=== PATIENT | male | born 1975 ===

== ENCOUNTER → 2020-09-01 12:02 | Outpatient (BNVA) | payer MEDICARE, MEDICAID, SELFPAY | PROVIDERS: PCP Nurse Practitioner Family; Visit Provider Internal Medicine Gastroenterology | DX: Z13.89 Encounter for screening for other disorder (principal) | CPT/HCPCS: Q3014 ==

== ENCOUNTER → 2020-09-05 08:54 | Outpatient (BNV) | payer MEDICARE, MEDICAID, SELFPAY | PROVIDERS: PCP Family Medicine; Visit Provider Internal Medicine | DX: D69.6 Thrombocytopenia, unspecified (principal) | CPT/HCPCS: 99212; 99213 ==

== ENCOUNTER → 2020-09-18 09:06 | Outpatient (BNVA) | payer MEDICARE, MEDICAID, SELFPAY | PROVIDERS: PCP Nurse Practitioner Family; Referring Provider Nurse Practitioner Family; Visit Provider Internal Medicine Endocrinology, Diabetes & Metabolism | DX: E16.2 Hypoglycemia, unspecified (principal) | CPT/HCPCS: 99202 ==

== ENCOUNTER → 2021-07-02 10:11 | Outpatient (BNVA) | payer MEDICARE, MEDICAID, SELFPAY | PROVIDERS: PCP Nurse Practitioner Family; Visit Provider Internal Medicine Gastroenterology | DX: K21.00 Gastro-esophageal reflux disease with esophagitis, without bleeding (principal); K22.70 Barrett's esophagus without dysplasia; D50.0 Iron deficiency anemia secondary to blood loss (chronic) | CPT/HCPCS: 99212 ==

== ENCOUNTER 2022-04-21 17:02 | Outpatient (REF) | payer MEDICARE, MEDICAID, SELFPAY ==
--- NOTE | ~2022-04-21 | XR_ITS ---
EXAMINATION: XR HAND, RIGHT CLINICAL INFORMATION: Pain status-post injury. COMPARISON: None TECHNIQUE: PA, lateral, and oblique views of the right hand. The lateral view centimeters on the right fifth digit. FINDINGS: The bones and soft tissues are normal. No fracture. Alignment is anatomic. Joint spaces are maintained. No erosions or soft tissue calcifications. XR/XR hand RT 2V IMPRESSION: Normal right hand.
== END 2022-04-21 17:03 | disposition home or self-care (01) ==
LOC: HO.XRAY 17:02
PROVIDERS: PCP Registered Nurse; Visit Provider Registered Nurse
DX: S69.91XA Unspecified injury of right wrist, hand and finger(s), initial encounter (principal); X58.XXXA Exposure to other specified factors, initial encounter; Y93.9 Activity, unspecified; Y92.9 Unspecified place or not applicable; Y99.9 Unspecified external cause status
CPT/HCPCS: 73120

== ENCOUNTER 2023-03-12 09:06 | Outpatient (AMB) | payer MEDICARE, MEDICAID, SELFPAY ==
--- NOTE | 2023-03-12 09:25 | AM.OFFWIN_ITS ---
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 Intake Note: pt is here for possible pink eye Patient Tobacco Use Status: Never used Tobacco Allergies Seasonale Allergy (Unknown, Uncoded 03/12/23 09:41) Abdominal Pain Medication List - Last Reconciled 03/12/23 by Jeb Montenegro PA-C acetaminophen ER (Pain Relief (acetaminophen)) 650 mg PO Q4-8H blood sugar diagnostic (FreeStyle Lite Strips) Once a day blood-glucose meter (FreeStyle Lite Meter kit) Once a day cetirizine 10 mg PO DAILY cholecalciferol (vitamin D3) (Vitamin D3) 25 mcg PO DAILY ferrous gluconate 0 mg PO lancets (FreeStyle Lancets) Once a day [Milk of Magnesia 30 mL PO 3XD] niacin ER (Niaspan) 1,000 mg PO DAILY [[place] 3 Fish Oil 1,200 mg PO DAILY] omeprazole 40 mg PO QAM [Robitussin 200 mg PO Q6-8H PRN] triamcinolone acetonide 0.1% topical [Tums 1,000 mg PO DAILY] Do you need a note to return to daycare/school/sports/work: Yes HPI AUTOMOTIVE LOT ATTENDANT pink eye? HPI Details Patient is a 47-year-old male here today reporting an eye infection over the last 2 days. Have noted some morning crusting of the right eye and have been washing away with warm washcloth. Otherwise no one else in the household with similar symptoms. [facility] Medical History (Updated 03/12/23 @ 09:45 by Jeb Montenegro PA-C) GERD (gastroesophageal reflux disease) History of pica Hypoglycemia Pancytopenia Surgical History No pertinent past surgical history Family History Father No problems noted. Mother No problems noted. Social History Household Members: Caregiver and Other Housing: Assisted Living Facility Alcohol intake: never Patient Tobacco Use Status: Never used Tobacco service: No Current occupational status: disabled Review of Systems Const Denies headache(s) Eyes Denies loss of vision ENT Denies vertigo, Denies dizziness, Denies headache(s) and Denies sore throat Card Denies chest pain, Denies leg edema and Denies lightheadedness Resp Denies cough, Denies hemoptysis and Denies wheezing GI Denies abdominal pain, Denies melena, Denies constipation, Denies diarrhea and Denies vomiting Denies dysuria, Denies urinary frequency and Denies urinary urgency Musc Denies arthralgias, Denies joint swelling, Denies numbness and Denies tingling Neuro Denies Abnormal speech present, Denies behavioral changes, Denies vertigo, Denies dizziness, Denies headache(s), Denies loss of vision, Denies memory loss, Denies numbness and Denies tingling Psych Denies anxiety, Denies behavioral changes, Denies depression, Denies memory loss and Denies panic attacks Jonah/Lymph Denies easy bleeding and Denies easy bruising Aller/Immun Denies wheezing Physical Exam Vital Signs: Last Vital Signs Temp 97.5 F 03/12/23 09:27 Pulse 83 03/12/23 09:27 BP 118/72 03/12/23 09:27 Pulse Ox 100 03/12/23 09:27 Oxygen Delivery Method Room Air 03/12/23 09:27 Const General: healthy appearing, no acute distress, alert and awake Nutritional Appearance: well nourished Orientation/consciousness: oriented to person, oriented to place and oriented to time HEENT Ears: TM's normal bilaterally General nose exam: Normal nasal mucous membranes and turbinates present Eyes Other: RIGHT EYE WITH MINIMUM A OF CRUSTING AND CLEAR DRAINAGE. PUPILS REACTIVE TO LIGHT AND ACCOMMODATION. Pupils: Equal, round and reactive pupils present Neck Neck: Yes no lymphadenopathy and Yes no JVD Thyroid: Thyroid normal Carotids: no bruits Resp Effort & Inspection: normal respiratory effort and not tachypneic Auscultation: no crackles, no rales, no rhonchi and no wheezes Cardio Rate: regular rate Rhythm: regular rhythm Heart sounds: no murmurs and normal S1 and S2 GI Palpation (GI): Soft to palpation, nontender, no hepatomegaly and no splenomegaly Auscultation: normal bowel sounds Skin General skin exam: no rashes or lesions noted and dry skin Neuro General: oriented to person, oriented to place and oriented to time Cranial nerves: Yes Equal, round and reactive pupils present Speech: No Abnormal speech present Gait exam (Neuro): Normal gait present Motor exam (neuro): no tremor noted Extrem Right upper extremity: full ROM Left upper extremity: full ROM Right lower extremity: full ROM; no edema Left lower extremity: full ROM; no edema Psych Mental Status: mental status grossly normal Speech and movement: Normal speech and movement present Affect: normal affect Attitude: cooperative Thought process: Normal thought process present Assessment & Plan Assessment & Plan (1) Conjunctivitis: Code(s): H10.9 - Unspecified conjunctivitis Qualifiers: Conjunctivitis type: acute Acute conjunctivitis type: bacterial Laterality: right Qualified Code(s): H10.31 - Unspecified acute conjunctivitis, right eye Plan: Patient's signs symptoms most consistent with right eye conjunctivitis, would treat for bacterial conjunctivitis with polymyxin B drops. Medications: New polymyxin B sulf-trimethoprim 10,000 unit- 1 mg/mL (Polytrim) while awake; do not exceed 6 doses in 24 hours 2 drps ophthalmic-Right .qh8 7 days 10 mL 0RF H10.31 - Unspecified acute conjunctivitis, right eye Coding Level of Care Code New Pt Level 3 (50297) Diagnoses Conjunctivitis H10.31 Conjunctivitis type: acute Acute conjunctivitis type: bacterial Laterality: right
[2023-03-12 09:27] VITALS: BP 118/72; PULSE 83; TEMP 36.4; O2SAT 100
== END 2023-03-12 10:21 | disposition home or self-care (01) ==
PROVIDERS: PCP Registered Nurse; Visit Provider Physician Assistant
DX: H10.31 Unspecified acute conjunctivitis, right eye (principal)
CPT/HCPCS: 99203

== ENCOUNTER 2023-08-05 12:53 | Outpatient (AMB) | payer MEDICARE, MEDICAID, SELFPAY ==
--- NOTE | 2023-08-05 13:56 | MHC.OFFWIV ---
Intake Vital Signs 08/05/23 14:05 Height 5 ft 3 in BP 110/70 Blood Pressure Location Rt brachial Position Sitting Pulse 77 Pulse Source Pulse Oximeter Temp 98.2 F Pulse Oximetry (%) 96 Oxygen Delivery Method Room Air Intake Visit Reasons: EST/cough/runny nose [phone] Intake Note: pt is here today for cough,runny nose started yesterday Patient Tobacco Use Status: Never used Tobacco Allergies Seasonale Allergy (Unknown, Uncoded 03/12/23 09:41) Abdominal Pain Do you need a note to return to daycare/school/sports/work: Yes HPI HPI Comments History of Present Illness Details This is a 48-year-old male who presents to the office today for sick visit. Patient complaining of viral URI symptoms x2 days. Patient's caregiver states that the patient has had nasal/sinus congestion, rhinorrhea, dry cough, and fatigue for the past 2 days. [facility] Medical History (Updated 04/15/23 @ 13:24 by Malka Gipson MD) Hypoglycemia History of pica GERD (gastroesophageal reflux disease) Pancytopenia Surgical History No pertinent past surgical history Family History Father No problems noted. Mother No problems noted. Social History Household Members: Caregiver and Other Housing: Assisted Living Facility Alcohol intake: never Patient Tobacco Use Status: Never used Tobacco service: No Current occupational status: disabled Review of Systems Const All systems reviewed & are unremarkable except as noted in HPI and below Reports no additional complaints Eyes Reports no additional complaints ENT Reports no additional complaints Card Reports no additional complaints Resp Reports no additional complaints GI Reports no additional complaints Reports no additional complaints Musc Reports no additional complaints Skin/Breast Reports system reviewed and no additional complaints, except as documented Neuro Reports no additional complaints Psych Reports no additional complaints Endo Reports no additional complaints Jonah/Lymph Reports no additional complaints Aller/Immun Reports no additional complaints Physical Exam Vital Signs: Last Vital Signs Temp 98.2 F 08/05/23 14:05 Pulse 77 08/05/23 14:05 BP 110/70 08/05/23 14:05 Pulse Ox 96 08/05/23 14:05 Oxygen Delivery Method Room Air 08/05/23 14:05 Const Other: Vital signs reviewed. Constitutional: Non-toxic appearing. No acute distress. Well-developed and well-nourished. HEENT: Normocephalic and atraumatic. Tympanic membranes without erythema, edema, or bulging bilaterally. External auditory canals without erythema or edema bilaterally. Moist mucous membranes. No pharyngeal erythema or exudates. + Rhinorrhea with clear drainage. Skin: Warm and dry. No rashes or lesions noted. Neck: Full and painless range of motion. No cervical lymphadenopathy. Cardio: Regular rate and rhythm. No murmurs, gallops, or rubs. No lower extremity edema. No JVD. Pulmonary: No respiratory distress. No accessory muscle usage. Clear to auscultation bilaterally without wheezing, crackles, or rhonchi. Gastrointestinal: Soft, nontender, and nondistended in all 4 quadrants. Musculoskeletal: Normal range of motion in joints throughout the body. No deformity or other signs of injury. Neuro: Cranial nerves 2-12 grossly intact. No focal deficits appreciated. Psych: Non-verbal at baseline. Assessment & Plan Assessment & Plan (1) Viral URI with cough: Code(s): J06.9 - Acute upper respiratory infection, unspecified Plan: This is a 48-year-old male who presented to the office with his caregiver complaining of viral URI symptoms x2 days. His physical exam is benign, his vital signs are stable, and he is overall nontoxic appearing. A chest x-ray was obtained due to reports of shortness of breath; however, have very low suspicion for acute pulmonary process such as pneumonia given no sputum production, no fever/chills, and his lungs are clear to auscultation bilaterally. Patient appears to be mouth breathing due to nasal congestion but he does not appear to be in acute respiratory distress. History and physical most consistent with an acute upper respiratory tract infection. His caregiver was reassured that this is likely a self-limiting illness. Recommended symptomatic management including rest, increased fluids, advil/tylenol for pain/fever, and over the counter throat lozenges/decongestants. Patient advised to follow up here or go to the emergency room for worsening/persistent symptoms. Orders: Orders XR chest 2V Today R05.9 - Cough, unspecified SARS-CoV2/FLU/RSV Today R09.89 - Other specified symptoms and signs involving the circulatory and respiratory systems Coding Level of Care Code Est Pt Level 3 (24844) Diagnoses Viral URI with cough J06.9
[2023-08-05 14:05] VITALS: BP 110/70; PULSE 77; TEMP 36.8; O2SAT 96
== END 2023-08-05 15:13 | disposition home or self-care (01) ==
PROVIDERS: PCP Registered Nurse; Visit Provider Physician Assistant Medical
DX: J06.9 Acute upper respiratory infection, unspecified (principal)
CPT/HCPCS: 99213

== ENCOUNTER 2023-08-05 14:24 | Outpatient (REF) | payer MEDICARE, MEDICAID, SELFPAY ==
--- NOTE | ~2023-08-05 | XR_ITS ---
EXAMINATION: XR CHEST CLINICAL INFORMATION: Cough unspecified. COMPARISON: None available. TECHNIQUE: 3 views of the chest. Visualization limited as per technologist patient was mentally challenged and had to be held for images with assistance of aide. Chin obscures the lung apices. Patient is rotated on views. FINDINGS: Lung volumes are low. Degenerative changes in the thoracic spine. No gross pleural effusion. Air-fluid level in the retrocardiac region, possibly related to a hiatal hernia. No gross focal consolidation to suggest pneumonia although visualization of the lungs is limited. XR/XR chest 2V IMPRESSION: 1. Air-fluid level in the retrocardiac region, possibly related to a hiatal hernia. CT scan of the chest and abdomen recommended for further evaluation. 2. No gross focal consolidation to suggest pneumonia although visualization of the lungs is limited.
[2023-08-05 18:03] LABS: Influenza A PCR NEGATIVE (Negative); Influenza B PCR NEGATIVE (Negative); Resp Syncy Virus RNA Qual PCR POSITIVE (Negative); SARS COV2 PCR INHOUSE NEGATIVE (Negative)
== END 2023-08-05 14:25 | disposition home or self-care (01) ==
LOC: HO.HMGCX 14:24
PROVIDERS: Visit Provider Physician Assistant Medical
DX: Z11.52 Encounter for screening for COVID-19 (principal); Z20.822 Contact with and (suspected) exposure to COVID-19; R05.9 Cough, unspecified; R09.89 Other specified symptoms and signs involving the circulatory and respiratory systems
CPT/HCPCS: 0241U; 71046

== ENCOUNTER 2023-10-13 09:18 | Outpatient (AMB) | payer MEDICARE, MEDICAID, SELFPAY ==
--- NOTE | 2023-10-13 09:26 | MHC.OFFVIS ---
Vital Signs 10/13/23 09:27 Height 5 ft 3 in Weight 150 lb BMI 26.6 BP 103/79 Blood Pressure Location Lt brachial Position Sitting Pulse 80 Intake Visit Reasons: GASTRO Intake Note: Patient follow up for Barretts esophagus. Patient denies any GI issues. Sociology Research Assistant Required: No Accompanied by: Other Relationship Allergies Seasonale Allergy (Unknown, Uncoded 03/12/23 09:41) Abdominal Pain Medication List - Last Reconciled 10/13/23 by Naren Key MD acetaminophen ER (Pain Relief (acetaminophen)) 650 mg PO Q4-8H blood sugar diagnostic (FreeStyle Lite Strips) Once a day blood-glucose meter (FreeStyle Lite Meter kit) Once a day cetirizine 10 mg PO DAILY ferrous gluconate 324 mg PO DAILY lancets (FreeStyle Lancets) Once a day [Milk of Magnesia 30 mL PO 3XD] niacin ER (Niaspan) 1,000 mg PO DAILY [[place] 3 Fish Oil 1,200 mg PO DAILY] omeprazole 40 mg PO QAM polymyxin B sulf-trimethoprim 10,000 unit- 1 mg/mL (Polytrim) 2 drps ophthalmic-Right .qh8 7 days [Robitussin 200 mg PO Q6-8H PRN] triamcinolone acetonide 0.1% topical [Tums 1,000 mg PO DAILY] [Vitamin D3 1,000 multiple units PO DAILY] HPI HPI GASTRO: Details: GI clinic visit for this 48-year-old male with develpomental delay for FU of GERD complicated by Seals's esophagus and BECKY. ?CHRONIC ILLNESSES:?developmental delay, GERD, iron def anemia, high cholestrol ?[facility] Reviewed - WBC 3.6, platelet 94, H&H 13.2 and 38.9, iron studies were normal. LFTs showed total bilirubin 1.8, remaining LFTs were normal ? 02/2019 liver fibrosis score of 0.07, liver fibrosis stage F0, necroinflammatory score 0.03. ? IMAGING STUDIES: 08/2019 Abd US showed: ? 1. The spleen is normal in size. ? 2. Liver demonstrates increased echogenicity suggesting underlying ? hepatic steatosis. No focal liver lesions are identified of the exam is limited. ? 3. The pancreas is not visualized. ?ENDOSCOPIC STUDIES: 06/15 EGD SHOWED: ? ESOPHAGUS: Small hiatal hernia, esophagitis seen on last EGD healed completely ? STOMACH: Gastritis ? DUODENUM: Normal ? Plan: ? Await pathology results ? Continue present medications (Omeprazole at 20 mg PO once daily) ? Patient has an appointment on 07/11/18 in the GI Clinic with Naren Key M.D. ?BIOPSIES SHOWED: ?A.? Esophagus, distal, biopsies:? Fragments of esophagogastric junctional mucosa with focal intestinal ? metaplasia/Seals's esophagus and mild chronic inflammation.? There is no evidence of dysplasia seen. ?B.? Gastric, biopsies:? Fragments of antral-type gastric mucosa with mild chronic gastritis. ? The Helicobacter pylori immunohistochemical stain is negative. ?TODAY'S VISIT ? patient is accomapnied by Gianna (medicare nurse/email marketing manager remote operations producer (Francis) since patient is nonverbal No GI complaints - appetite OK and wt is stable Has a normal BM daily. Has been vaccinated for COVID and had the booster dose last week. PAST VISITA; ? Has not had lab done since pt has been quarantined for suspected exposure to COVID 19.. ? Doing Ok - no issues ? Isolated at the house due to COVID ? No complaints of heartburn or dysphagia. ? Appetite is good and weight is stable [facility] Medical History (Updated 10/21/23 @ 15:45 by Naren Key MD) Hypoglycemia History of pica GERD (gastroesophageal reflux disease) Pancytopenia Surgical History No pertinent past surgical history Family History Father No problems noted. Mother No problems noted. Social History Household Members: Caregiver and Other Housing: Assisted Living Facility Alcohol intake: never Patient Tobacco Use Status: Never used Tobacco Advance Directives: No Advance Directives Information Provided: Yes service: No Current occupational status: disabled Review of Systems Const All systems reviewed & are unremarkable except as noted in HPI and below Physical Exam Vital Signs: Last Vital Signs Pulse 80 10/13/23 09:27 BP 103/79 10/13/23 09:27 BMI result Body Mass Index 26.6 Const General: healthy appearing and no acute distress Nutritional Appearance: average body habitus Orientation/consciousness: patient oriented x3 Limitations: no limitations HEENT Head: Yes normal to inspection Ears: hearing grossly normal bilaterally Mouth: Normal oral and palatal mucosa present Eyes Sclerae: sclerae normal Pupils: Equal, round and reactive pupils present Neck Neck: Yes normal visual inspection Chest Chest palpation & inspection: normal inspection of the chest Resp Effort & Inspection: normal respiratory effort Auscultation: clear to auscultation bilaterally Cardio Palpation: normal PMI Rate: regular rate Rhythm: regular rhythm Heart sounds: S1 normal heart sound present, S2 normal heart sound present and no murmurs GI Palpation (GI): Soft to palpation, nontender and No hepatosplenomegaly present Auscultation: normal bowel sounds Rectal Exam - Male: Yes deferred Skin General skin exam: no rashes or lesions noted Neuro General: patient oriented x3, gait normal and moves all extremities Cranial nerves: Yes Equal, round and reactive pupils present Psych Appearance: grossly normal Mental Status: other (non verbal at baseline) Assessment & Plan Assessment & Plan (1) GERD with esophagitis: Code(s): K21.00 - Gastro-esophageal reflux disease with esophagitis, without bleeding Category: Medical (2) Seals's esophagus without dysplasia: Code(s): K22.70 - Seals's esophagus without dysplasia Category: Medical (3) Thrombocytopenia: Code(s): D69.6 - Thrombocytopenia, unspecified Category: Medical (4) Iron deficiency anemia due to chronic blood loss: Code(s): D50.0 - Iron deficiency anemia secondary to blood loss (chronic) Category: Medical (5) Abnormal chest xray: Code(s): R93.89 - Abnormal findings on diagnostic imaging of other specified body structures Category: Medical Plan 48 YM with developmental delay, GERD, iron def anemia, high cholestrol followed in GI for GERD complicated by Seals's esophagus without dysplasia. Patient is nonverbal due to developmental delay. Pt was hospitalized in 02/13 for iron def anemia. EGD showed erosive esophagitis. Same day colonoscopy was negative (prep was excellent). FU EGD in 06/15 showed erosive esophagitis had resolved and confirmed presence of small area of Seals's. Plan is to schedule a repeat EGD for FU of Seals's metaplasia this summer (after pt is vaccinated for COVID). Pt to continue taking Omeprazole 40 mg once a day. Patient also has a history of iron deficiency anemia which is attributed to GI blood loss from erosive esophagitis. Patient will be scheduled for an upper endoscopy for follow-up Seals's metaplasia ADDENDUM: 08/05/23 CHEST XRAY SHOWED: 1. Air-fluid level in the retrocardiac region, possibly related to a hiatal hernia. CT scan of the chest and abdomen recommended for further evaluation. 2. No gross focal consolidation to suggest pneumonia although visualization of the lungs is limited. 05/2018 EGD SHOWED: GE junction at 35 cms, hiatal hernia from 35 to 38 cms. No esophagitis. Irregular ora-gabriela - biopsies obtained to check for Seals?s . A diagnosis of Seals's was confirmed on biopsies. 10/13/23 Advised to schedule an EGD for follow-up of Seals's esophagus ( Scheduled for an EGD on 03/05/24) FU in 4 months Patient Instructions: Please fax a copy of Abdominal Ultrasound report to [phone], Thanks Coding Level of Care Code Est Pt Level 4 (85070) Diagnoses GERD with esophagitis K21.00 Seals's esophagus without dysplasia K22.70 Thrombocytopenia D69.6 Iron deficiency anemia due to chronic blood loss D50.0 Abnormal chest xray R93.89 Time Spent (min) 23
[2023-10-13 09:27] VITALS: BP 103/79; PULSE 80; BMI 26.6
== END 2023-10-13 09:58 | disposition home or self-care (01) ==
PROVIDERS: PCP Registered Nurse; Visit Provider Internal Medicine Gastroenterology
DX: K21.00 Gastro-esophageal reflux disease with esophagitis, without bleeding (principal); K22.70 Barrett's esophagus without dysplasia; D69.6 Thrombocytopenia, unspecified; D50.0 Iron deficiency anemia secondary to blood loss (chronic); R93.89 Abnormal findings on diagnostic imaging of other specified body structures
CPT/HCPCS: 99214

== ENCOUNTER → 2023-10-13 09:18 | Outpatient (BNVA) | payer MEDICARE, MEDICAID, SELFPAY | PROVIDERS: PCP Registered Nurse; Visit Provider Internal Medicine Gastroenterology | DX: K21.00 Gastro-esophageal reflux disease with esophagitis, without bleeding (principal); K22.70 Barrett's esophagus without dysplasia; D69.6 Thrombocytopenia, unspecified; D50.0 Iron deficiency anemia secondary to blood loss (chronic); R93.89 Abnormal findings on diagnostic imaging of other specified body structures | CPT/HCPCS: 99212 ==

== ENCOUNTER 2023-12-15 10:28 | Outpatient (REF) | payer MEDICARE, MEDICAID, SELFPAY ==
--- NOTE | ~2023-12-15 | CT_ITS ---
EXAMINATION: CT CHEST WITH CONTRAST CLINICAL INFORMATION: Question hiatus hernia on recent chest radiograph. COMPARISON: Chest radiographs dated 07/31/2023. TECHNIQUE: Multidetector volumetric CT imaging of the chest was obtained after the administration of 65 mL of Omnipaque 350 intravenous contrast without immediate adverse reactions. Axial MIP volume rendering provided. Sagittal and coronal reformatted images were obtained. This CT examination was performed using dose optimization techniques as appropriate, variously including the following: *Automated exposure control *Adjustment of mA and/or kV according to patient size (this includes techniques or standardized protocols for targeted exams where dose is matched to indication/reason for exam; i.e. extremities or head) *Use of iterative reconstruction technique DLP: 383 mGy-cm FINDINGS: DIRECTOR EXECUTIVE COMMUNICATIONS: The patient is kyphotic, with the head overlapping the upper lung moore. A large hiatus hernia is seen. The lungs are well-expanded. There is mild elevation of the right hemidiaphragm. LUNGS: Evaluation is significantly limited by motion artifact. The lungs are clear with no evidence of inflammation or nodules. MEDIASTINUM: The mediastinum is normal. PLEURA: There is no pleural effusion. No pleural mass or thickening. AXILLA: No lymphadenopathy. UPPER ABDOMEN: There is a large hiatus hernia. The adrenal glands are unremarkable. A benign, simple mid left renal cyst is incompletely included in the [id number] and requires no imaging follow-up. OSSEOUS STRUCTURES: There is a kyphoscoliosis. There is a stable mild T6 anterior wedge compression fracture, not significantly changed from the lateral chest radiograph dated 08/05/2023. There is multi-level marked thoracic and upper lumbar endplate arthropathy. No acute or aggressive osseous finding is noted. CT/CT chest w IV con IMPRESSION: 1. Imaging is limited by significant motion artifact. 2. A large hiatus hernia is seen. 3. The lungs are clear. 4. No thoracic lymphadenopathy or pleural effusion is noted. 5. A mild T6 anterior wedge compression fracture is not significantly changed, and there is a kyphoscoliosis. 6. There is a large hiatus hernia. Fleischner guidelines were followed.
[2023-12-15] MEDS: iohexoL 350 MG/ML 100 ML INFUS..BTL 65 ML IV (11:48)
== END 2023-12-15 10:29 | disposition home or self-care (01) ==
LOC: HO.CT 10:28
PROVIDERS: PCP Registered Nurse; Visit Provider Internal Medicine Gastroenterology
DX: R93.89 Abnormal findings on diagnostic imaging of other specified body structures (principal)
CPT/HCPCS: 71260; Q9967

== ENCOUNTER 2023-12-21 10:41 | Outpatient (REF) | payer MEDICARE, MEDICAID, SELFPAY ==
[2023-12-21 11:36] LABS: MANUAL DIFF FLAG NO
[2023-12-21 11:50] LABS: Basophils Percent Auto 0.4 % (0-2); Eosinophils Absolute Auto 0.1 X10*3/uL (0.0-0.4); Eosinophils Percent Auto 2.2 % (0-4); Imm Gran Abs Auto 0.01 X10*3/uL (0.00-0.03); Imm Gran Pct Auto 0.2 % (0.0-0.4); Lymphocytes Percent Auto 43.8 % (20-40); Mean Corpuscular HGB Conc 34.2 g/dl (31.0-36.0); Mean Corpuscular Hemoglobin 28.8 pg (27.0-33.0); Mean Corpuscular Volume 84.1 fL (80.0-98.0); Mean Platelet Volume 12.3 fL (9.4-12.4); Monocytes Absolute Auto 0.3 X10*3/uL (0.1-1.2); Monocytes Percent Auto 6.9 % (2-11); Neutrophils Absolute Auto 2.1 x10*3/uL (2.0-8.3); Neutrophils Percent Auto 46.5 % (45-73); Platelet Count 96 X10*3/uL (160-400); Red Blood Count 4.52 X10*6/uL (4.60-5.80); Red Cell Distribution Width 13.3 % (11.0-16.0); White Blood Count 4.5 X10*3/uL (4.8-10.8)
[2023-12-21 12:11] LABS: Estimated Average Glucose 108 mg/dL; Hemoglobin A1c % 5.4 % (<6.0)
[2023-12-21 14:09] LABS: Alanine Aminotransferase 21 U/L (0-40); Albumin Level 4.2 g/dL (3.5-5.0); Alkaline Phosphatase 79 U/L (39-117); Anion Gap 12 (12-20); Aspartate Amino Transferase 20 U/L (5-37); Bilirubin Total 0.7 mg/dL (0.0-1.0); Blood Urea Nitrogen 8 mg/dL (9-16); Calcium 9.6 mg/dL (8.4-10.2); Carbon Dioxide 25 mmol/L (22-29); Chloride 108 mmol/L (96-108); Cholesterol 171 mg/dL (<200); Estimated Glomerular Filt Rate > 60; Glucose Random 70 mg/dL (60-115); HDL Cholesterol 32 mg/dL (>40); Iron 86 mcg/dL (45-160); LDL Cholesterol Calculated 78 mg/dL (<100); Percent Iron Saturation 31 % (15-50); Potassium 3.6 mmol/L (3.3-5.1); Sodium 141 mmol/L (135-145); Total Iron Binding Capacity 277 mcg/dL (228-428); Total Protein 7.4 g/dL (6.5-8.0); Triglycerides 309 mg/dL (<150); Unsaturated Iron Binding 191 ug/dL
[2023-12-21 14:34] LABS: Ferritin 52 ng/mL (20-250); TSH reflex Free T4 2.12 uIU/mL (0.32-4.0); Vitamin D 25-OH Total 28.4 ng/mL (>30)
[2023-12-22 05:38] LABS: HBS Num1 280.32 mIU/mL (0-7.99); HBc Num1 0.18 S/CO (0.00-0.79); HBsAGNum1 0.28 S/CO (0.00-0.99); Hepatitis B Core Antibody Nonreactive (Nonreactive); Hepatitis B Surface Antigen Negative (Negative); ~Hepatitis B Surface Antibody REACTIVE (Nonreactive)
== END 2023-12-21 10:42 | disposition home or self-care (01) ==
LOC: HO.HHCL 10:41
PROVIDERS: Visit Provider Registered Nurse
DX: Z00.00 Encounter for general adult medical examination without abnormal findings (principal); Z11.59 Encounter for screening for other viral diseases; Z13.29 Encounter for screening for other suspected endocrine disorder; Z13.1 Encounter for screening for diabetes mellitus; Z13.220 Encounter for screening for lipoid disorders; E55.9 Vitamin D deficiency, unspecified
CPT/HCPCS: 36415; 80053; 80061; 82306; 82728; 83036; 83540; 84443; 85025; 86704; 86706; 87340

== ENCOUNTER 2024-03-05 10:46 | Day surgery (SDC) | payer MEDICARE, MEDICAID, SELFPAY ==
[2024-03-05 10:55] VITALS: BP 134/96; PULSE 64; RESP 16; TEMP 36.3; O2SAT 95; BMI 28.5
--- NOTE | 2024-03-05 11:01 | MHC.SHP ---
Pre-Procedural Eval Section A - 24 Hr Update-Section A only Date of Service: 03/05/24 The patient is an INPATIENT: No The patient has been examined within 24 hours of the surgical procedure. The History & Physical has been completed within 30 days and I have reviewed it.: No Section B - Complete if H&P > 30 days Chief Complaint: FU of Seals's esophagus Relevant Family History (Specify if Yes): No Relevant Social History: None Present Medications: see Short Stay Collaborative assessment Medical History: Significant History (Hypoglycemia History of pica GERD (gastroesophageal reflux disease) Pancytopenia) History of Previous Operations: Relevant previous surgery/procedure and date(s) (History of upper endoscopy) Allergies: Allergies Allergy/AdvReac Type Severity Reaction Status Date / Time Seasonale Allergy Unknown Abdominal Uncoded 03/12/23 09:41 Pain Review of Systems Sugical H&P ROS: Negative: Constitution, Cardiovascular, Respiratory and Gastrointestinal Exam Surgical H&P Exam: Normal: Heart and Normal: Lungs Plan Diagnosis/Plan: Unchanged I have reviewed the history and physical and performed a pertinent physical examination on my patient. No changes have occurred unless specified. Time Spent With Patient Time: Total time managing care of this patient today ____ minutes.
[2024-03-05] MEDS: Lactated Ringers 1,000 ML 100 ML IVCONT (11:13)
--- NOTE | 2024-03-05 11:47 | P.CONAN_ITS ---
[facility] Active Problems Active Problems: All Active Problems Abnormal chest xray (Acute) Conjunctivitis (Acute) Hypoglycemia (Acute) GERD with esophagitis (Acute) Seals's esophagus without dysplasia (Acute) Thrombocytopenia (Chronic) Iron deficiency anemia due to chronic blood loss (Acute) Hypercholesterolemia (Acute) Vitamin D deficiency (Acute) Past Medical History Medical History (Updated 10/21/23 @ 15:45 by Naren Key MD) Hypoglycemia History of pica GERD (gastroesophageal reflux disease) Pancytopenia Family History Family History Father No problems noted. Mother No problems noted. Family history of problems with anesthesia: No Surgical History Surgical History No pertinent past surgical history History of Problems with Anesthesia: No Social History Social History Household Members: Caregiver and Other Housing: Assisted Living Facility Alcohol intake: never Patient Tobacco Use Status: Never used Tobacco service: No Current occupational status: disabled Meds Allergies Allergy/AdvReac Type Severity Reaction Status Date / Time Seasonale Allergy Unknown Abdominal Uncoded 03/12/23 09:41 Pain Active Medications: Current Medications Lactated Ringer's (Lr) 1,000 mls @ 100 mls/hr IVCONT .Q10H LAZARA Last Admin: 03/05/24 11:13 Dose: 100 mls/hr Home Medications ?Medication ?Instructions ?Recorded ?Confirmed ?Last Taken ?Type cetirizine 10 mg tablet 10 mg PO DAILY 09/01/20 10/13/23 Unknown History niacin 500 mg tablet,extended 1,000 mg PO DAILY 09/01/20 10/13/23 Unknown History release 24 hr (Niaspan) triamcinolone acetonide 0.1 % topical 09/01/20 10/13/23 Unknown History topical ointment acetaminophen 650 mg 650 mg PO Q4-8H 09/18/20 10/13/23 Unknown History tablet,extended release (Pain Relief (acetaminophen)) Milk of Magnesia 30 ml PO 3XD 04/14/22 10/13/23 Unknown History [place] 3 Fish Oil 1,200 mg PO DAILY 04/14/22 10/13/23 Unknown History Robitussin 200 mg PO Q6-8H PRN Cough 04/14/22 10/13/23 Unknown History Tums 1,000 mg PO DAILY 04/14/22 10/13/23 Unknown History omeprazole 40 mg capsule,delayed 40 mg PO QAM gerd 04/14/22 10/13/23 Unknown History release ferrous gluconate 324 mg (38 mg 324 mg PO DAILY 03/12/23 10/13/23 Unknown History iron) tablet Vitamin D3 1,000 units PO DAILY 04/15/23 10/13/23 Unknown History Exam Height,Weight and Vital Signs: Height 5 ft 1 in Weight 68.492 kg Last Vital Signs Temp 97.3 F 03/05/24 10:55 Pulse 64 03/05/24 10:55 Resp 16 03/05/24 10:55 BP 134/96 H 03/05/24 10:55 Pulse Ox 95 03/05/24 10:55 O2 Del Method Room Air 03/05/24 10:55 Airway Mallampati Class: III TM Dist: >3cm Neck ROM: Full Assessment and Plan Assessment Anesthesia Assessment: Anesthesia Plan Discussed and Chart Reviewed Final Anesthetic Review Family History of Problems with Anesthesia: No History of Problems with Anesthesia: No NPO: Yes ASA Class: III Final Preanesthetic Review: No Changes in Pt Med Stat, Meds/Allgs Chart Reviewed, Consent Obtained/Reviewed and Anes Risks/Benef Reviewed Patient Risk: Intermediate Procedure Risk: Low Anesthetic Plan Anesthetic Plan: TIVA Disposition: Standard PACU
--- NOTE | 2024-03-05 12:17 | W.PM.OPN ---
Operative Note Operative Note Date of Service: 03/05/24 Narrative: FLEXIBLE TRANSORAL UPPER GASTROINTESTINAL ENDOSCOPY WITH BIOPSIES Pre-op diagnosis: GERD, follow-up of Seals's esophagus Post-op diagnosis: Same Endoscopist:? Naren Key MD Anesthesia:?MAC UPPER ENDOSCOPY Consent: Indications for the procedure and potential complications of bleeding, perforation, reaction to medications and missed diagnosis were discussed with the patient's sister and DPOA and informed consent was obtained. Instrument: Olympus GIF H 190 mid size upper endoscope Monitoring: Vital signs and clinical assessment, continuous EKG monitoring, Pulse oximetry, Carbon Dioxide monitoring and blood pressure monitoring were done throughout the procedure. Procedure: The patient was placed in the left lateral decubitis position and pre-procedure medications were administered and a bite block was placed. The endoscope was inserted into the mouth and advanced under direct vision through the esophagus into a large hiatal hernia sac. It was not possible to advance the upper endoscope into the stomach due to looping of the endoscope in the hiatal hernia sac. A careful inspection was made as the upper endoscope was withdrawn. Findings and interventions are described below. Findings: Larynx: Normal Esophagus: GE junction at 34 cms. Mildly tortuous esophagus without stricture or ring. Large hiatal hernia 34 to 40 cms. Irregular Z line and biopsies were obtained to fu on Seals's It was not possible to advance the upper endoscope into the stomach due to looping of the endoscope in the hiatal hernia sac. Stomach: Not evaluated Duodenum: Not evaluated Intervention: Biopsies as noted above Impression and Post Procedure Diagnosis: Endoscopy Findings: ESOPHAGUS: GE junction at 34 cms. Mildly tortuous esophagus without stricture or ring. Large hiatal hernia 34 to 40 cms. Irregular Z line and biopsies were obtained to fu on Seals's It was not possible to advance the upper endoscope into the stomach due to looping of the endoscope in the hiatal hernia sac. Plan: Pt has a FU appointment on 03/22/[address] Key. Relevant handouts were given and the discharge area. 11/[address] SCAN SHOWED: 1. Imaging is limited by significant motion artifact. 2. A large hiatus hernia is seen. 3. The lungs are clear. 4. No thoracic lymphadenopathy or pleural effusion is noted. 5. A mild T6 anterior wedge compression fracture is not significantly changed, and there is a kyphoscoliosis. BIOPSIES SHOWED: Esophagus, distal, biopsy: - Cardiofundic-type mucosa with moderate chronic, focally active, inflammation; no intestinal metaplasia seen. - Squamous epithelium within normal limits. Advise repeat EGD in 4 years due to hx of Seals's on a previous EGD. Of note, pt had a negative colon in 01/[address] Espino. Seals's metaplasia (without dysplasia) was detected on same day EGD. Next colon is due in 01/2028. FU EGD can be performed same day as colonoscopy.
[2024-03-05 12:20] VITALS: BP 95/68; PULSE 72; RESP 16; TEMP 36.1; O2SAT 97
[2024-03-05 12:35] VITALS: BP 112/68; PULSE 70; RESP 18; TEMP 36.8; O2SAT 97
== END 2024-03-05 12:40 | disposition home or self-care (01) ==
PROVIDERS: PCP Registered Nurse; Visit Provider Internal Medicine Gastroenterology
PROC: 0DJ08ZZ Inspection of Upper Intestinal Tract, Via Natural or Artificial Opening Endoscopic (ICD-10-PCS; CPT 43235; principal; 2024-03-05 11:00)
DX: K22.70 Barrett's esophagus without dysplasia (principal); K21.00 Gastro-esophageal reflux disease with esophagitis, without bleeding; K44.9 Diaphragmatic hernia without obstruction or gangrene; D50.9 Iron deficiency anemia, unspecified; D61.818 Other pancytopenia; D69.6 Thrombocytopenia, unspecified; E16.2 Hypoglycemia, unspecified; R62.50 Unspecified lack of expected normal physiological development in childhood; J30.2 Other seasonal allergic rhinitis; Z79.899 Other long term (current) drug therapy
CPT/HCPCS: 43239; 88305; J2704

== ENCOUNTER → 2024-03-05 10:46 | Outpatient (BNV) | payer MEDICARE, MEDICAID, SELFPAY | PROVIDERS: PCP Registered Nurse; Visit Provider Internal Medicine Gastroenterology | DX: K21.9 Gastro-esophageal reflux disease without esophagitis (principal); K22.70 Barrett's esophagus without dysplasia | CPT/HCPCS: 43239 ==

== ENCOUNTER 2024-03-22 14:09 | Outpatient (AMB) | payer MEDICARE, MEDICAID, SELFPAY ==
[2024-03-22 14:08] VITALS: BMI 28.3
--- NOTE | 2024-03-22 14:08 | MHC.OFFVIS ---
Vital Signs 03/22/24 14:08 Height 5 ft 1 in Weight 149 lb 14.629 oz BMI 28.3 Blood Pressure Location Lt brachial Position Sitting Intake Visit Reasons: s/p egd Intake Note: Dolores presents in the office as a follow up EGD. CC: Just here to see what the next steps are. Would like a list of historical records and they would like a recommended special diet for barretts and large hiatal hernia. Woould like us to put a OT rferral for speech to work with him and teach staff positioning to make him more comfortable with eating and digesting. They would like to know if there is any nonsurgical recommendations and what is the short term and skilled nursing prognosis. Bow Maker Gift Wrapping Required: No Allergies Seasonale Allergy (Unknown, Uncoded 03/22/24 14:08) Abdominal Pain Medication List - Last Reconciled 03/22/24 by Naren Key MD acetaminophen ER (Pain Relief (acetaminophen)) 650 mg PO Q4-8H blood sugar diagnostic (FreeStyle Lite Strips) Once a day blood-glucose meter (FreeStyle Lite Meter kit) Once a day cetirizine 10 mg PO DAILY cholecalciferol (vitamin D3) (Vitamin D3) 25 mcg PO DAILY ferrous gluconate 324 mg PO DAILY lancets (FreeStyle Lancets) Once a day loratadine (Allergy Relief (loratadine)) 10 mg PO DAILY magnesium hydroxide (Milk of Magnesia) 5 mL PO DAILY PRN [Milk of Magnesia 30 mL PO 3XD] niacin ER (Niaspan) 1,000 mg PO DAILY [[place] 3 Fish Oil 1,200 mg PO DAILY] omega-3 fatty acids-fish oil 360-1,200 mg (Fish Oil) caps PO omeprazole 40 mg PO QAM polymyxin B sulf-trimethoprim 10,000 unit- 1 mg/mL (Polytrim) 2 drps ophthalmic-Right .qh8 7 days [Robitussin 200 mg PO Q6-8H PRN] triamcinolone acetonide 0.1% topical [Tums 1,000 mg PO DAILY] [Vitamin D3 1,000 multiple units PO DAILY] HPI HPI s/p egd: Details: GI clinic visit for this 48-year-old male with develpomental delay for FU of GERD complicated by Seals's esophagus and BECKY. ?CHRONIC ILLNESSES:?developmental delay, GERD, iron def anemia, high cholestrol ?LABS IN [facility]:?09/04/2019 Reviewed - WBC 3.6, platelet 94, H&H 13.2 and 38.9, iron studies were normal. LFTs showed total bilirubin 1.8, remaining LFTs were normal ? 02/2019 liver fibrosis score of 0.07, liver fibrosis stage F0, necroinflammatory score 0.03. ? IMAGING STUDIES: 11/[address] SCAN SHOWED: 1. Imaging is limited by significant motion artifact. 2. A large hiatus hernia is seen. 3. The lungs are clear. 4. No thoracic lymphadenopathy or pleural effusion is noted. 5. A mild T6 anterior wedge compression fracture is not significantly changed, and there is a kyphoscoliosis. 08/2019 Abd US showed: ? 1. The spleen is normal in size. ? 2. Liver demonstrates increased echogenicity suggesting underlying ? hepatic steatosis. No focal liver lesions are identified of the exam is limited. ? 3. The pancreas is not visualized. ?ENDOSCOPIC STUDIES: 03/05/24 ESOPHAGUS: GE junction at 34 cms. Mildly tortuous esophagus without stricture or ring. Large hiatal hernia 34 to 40 cms. Irregular Z line and biopsies were obtained to fu on Seals's It was not possible to advance the upper endoscope into the stomach due to looping of the endoscope in the hiatal hernia sac. Plan: Relevant handouts were given and the discharge area. BIOPSIES SHOWED: Esophagus, distal, biopsy: - Cardiofundic-type mucosa with moderate chronic, focally active, inflammation; no intestinal metaplasia seen. - Squamous epithelium within normal limits. Advise repeat EGD in 4 years due to hx of Seals's on a previous EGD. Of note, pt had a negative colon in 01/[address] Espino. Seals's metaplasia (without dysplasia) was detected on same day EGD. Next colon is due in 01/2028. FU EGD can be performed same day as colonoscopy. 06/15 EGD SHOWED: ? ESOPHAGUS: Small hiatal hernia, esophagitis seen on last EGD healed completely ? STOMACH: Gastritis ? DUODENUM: Normal ? Plan: ? Await pathology results ? Continue present medications (Omeprazole at 20 mg PO once daily) ? Patient has an appointment on 07/11/18 in the GI Clinic with Naren Key M.D. ?BIOPSIES SHOWED: ?A.? Esophagus, distal, biopsies:? Fragments of esophagogastric junctional mucosa with focal intestinal ? metaplasia/Seals's esophagus and mild chronic inflammation.? There is no evidence of dysplasia seen. ?B.? Gastric, biopsies:? Fragments of antral-type gastric mucosa with mild chronic gastritis. ? The Helicobacter pylori immunohistochemical stain is negative. ?TODAY'S VISIT ? patient is accomapnied by wild animal caretaker/manager wastewater since patient is nonverbal CC: Just here to see what the next steps are. Would like a list of historical records and they would like a recommended special diet for barretts and large hiatal hernia. Would like us to put a OT rferral for speech to work with him and teach staff positioning to make him more comfortable with eating and digesting. They would like to know if there is any nonsurgical recommendations and what is the short term and skilled nursing prognosis. No GI complaints - appetite OK and wt is stable Pt is kept upright after he eats - otherwise he can have regurgitation of food. Denies frequent coughing spells Has a normal BM daily. EGD and biopsy results were reviewed. Has been vaccinated for COVID and had the booster dose last week. PAST VISITS; ? Has not had lab done since pt has been quarantined for suspected exposure to COVID 19.. ? Doing Ok - no issues ? Isolated at the house due to COVID ? No complaints of heartburn or dysphagia. ? Appetite is good and weight is stable [facility] Medical History Hypoglycemia History of pica GERD (gastroesophageal reflux disease) Pancytopenia Surgical History History of esophagogastroduodenoscopy (EGD) No pertinent past surgical history Family History Father No problems noted. Mother No problems noted. Social History Household Members: Caregiver and Other Housing: Assisted Living Facility Alcohol intake: never Comment: patient smiling at sister and caregiver Patient Tobacco Use Status: Never used Tobacco service: No Current occupational status: disabled Review of Systems Const All systems reviewed & are unremarkable except as noted in HPI and below Physical Exam Vital Signs: BMI result Body Mass Index 28.3 Const General: healthy appearing and no acute distress Nutritional Appearance: overweight Limitations: other limitations (Developmental delay) HEENT Head: Yes normal to inspection Ears: hearing grossly normal bilaterally Eyes Sclerae: sclerae normal Pupils: Equal, round and reactive pupils present Neck Neck: Yes normal visual inspection Chest Chest palpation & inspection: normal inspection of the chest Resp Effort & Inspection: normal respiratory effort Auscultation: clear to auscultation bilaterally Cardio Palpation: normal PMI Rate: regular rate Rhythm: regular rhythm Heart sounds: S1 normal heart sound present, S2 normal heart sound present and no murmurs GI Palpation (GI): Soft to palpation, nontender and No hepatosplenomegaly present Auscultation: normal bowel sounds Rectal Exam - Male: Yes deferred Skin General skin exam: no rashes or lesions noted Neuro General: gait normal and moves all extremities Cranial nerves: Yes Equal, round and reactive pupils present Psych Appearance: grossly normal Mental Status: other (non verbal at baseline) Assessment & Plan Assessment & Plan (1) GERD with esophagitis: Code(s): K21.00 - Gastro-esophageal reflux disease with esophagitis, without bleeding Category: Medical (2) Seals's esophagus without dysplasia: Code(s): K22.70 - Seals's esophagus without dysplasia Category: Medical (3) Thrombocytopenia: Code(s): D69.6 - Thrombocytopenia, unspecified Category: Medical (4) Large hiatal hernia: Code(s): K44.9 - Diaphragmatic hernia without obstruction or gangrene Category: Medical Plan 48 YM with developmental delay, GERD, iron def anemia, high cholestrol followed in GI for GERD complicated by Seals's esophagus without dysplasia. Patient is nonverbal due to developmental delay. Pt was hospitalized in 02/13 for iron def anemia. EGD showed erosive esophagitis. Same day colonoscopy was negative (prep was excellent). FU EGD in 06/15 showed erosive esophagitis had resolved and confirmed presence of small area of Seals's. Plan is to schedule a repeat EGD for FU of Seals's metaplasia this summer (after pt is vaccinated for COVID). Pt to continue taking Omeprazole 40 mg once a day. Patient also has a history of iron deficiency anemia which is attributed to GI blood loss from erosive esophagitis. Patient will be scheduled for an upper endoscopy for follow-up Seals's metaplasia ADDENDUM: 08/05/23 CHEST XRAY SHOWED: 1. Air-fluid level in the retrocardiac region, possibly related to a hiatal hernia. CT scan of the chest and abdomen recommended for further evaluation. 2. No gross focal consolidation to suggest pneumonia although visualization of the lungs is limited. 05/2018 EGD SHOWED: GE junction at 35 cms, hiatal hernia from 35 to 38 cms. No esophagitis. Irregular ora-gabriela - biopsies obtained to check for Seals?s . A diagnosis of Seals's was confirmed on biopsies. 11/[address] SCAN SHOWED: 1. Imaging is limited by significant motion artifact. 2. A large hiatus hernia is seen. 3. The lungs are clear. 4. No thoracic lymphadenopathy or pleural effusion is noted. 5. A mild T6 anterior wedge compression fracture is not significantly changed, and there is a kyphoscoliosis. 03/05/24 ESOPHAGUS: GE junction at 34 cms. Mildly tortuous esophagus without stricture or ring. Large hiatal hernia 34 to 40 cms. Irregular Z line and biopsies were obtained to fu on Seals's It was not possible to advance the upper endoscope into the stomach due to looping of the endoscope in the hiatal hernia sac. Plan: Relevant handouts were given and the discharge area. BIOPSIES SHOWED: Esophagus, distal, biopsy: - Cardiofundic-type mucosa with moderate chronic, focally active, inflammation; no intestinal metaplasia seen. - Squamous epithelium within normal limits. Advise repeat EGD in 4 years due to hx of Seals's on a previous EGD. Of note, pt had a negative colon in 01/[address] Espino. Seals's metaplasia (without dysplasia) was detected on same day EGD. Next colon is due in 01/2028. FU EGD can be performed same day as colonoscopy. Pt will be scheduled for a barium swallow and referred to Thoracic surgery to be evaluated for hiatal hernia repair. Increase Omeprazole to 40 mg twice daily. Follow-up in 6-8 weeks Orders: Orders FL barium swallow Today K44.9 - Diaphragmatic hernia without obstruction or gangrene Referrals Thoracic/General Surgery Referral K44.9 - Diaphragmatic hernia without obstruction or gangrene Medications: Changed From omeprazole 40 mg PO QAM gerd K21.00 - Gastro-esophageal reflux disease with esophagitis, without bleeding, K44.9 - Diaphragmatic hernia without obstruction or gangrene To omeprazole 40 mg PO BID 60 days 120 caps 2RF gerd K21.00 - Gastro-esophageal reflux disease with esophagitis, without bleeding, K44.9 - Diaphragmatic hernia without obstruction or gangrene Coding Level of Care Code Est Pt Level 4 (79703) Diagnoses GERD with esophagitis K21.00 Seals's esophagus without dysplasia K22.70 Thrombocytopenia D69.6 Large hiatal hernia K44.9 Time Spent (min) 26
== END 2024-03-22 15:11 | disposition home or self-care (01) ==
LOC: HO.HGI 14:09
PROVIDERS: PCP Registered Nurse; Visit Provider Internal Medicine Gastroenterology
DX: K21.00 Gastro-esophageal reflux disease with esophagitis, without bleeding (principal); K22.70 Barrett's esophagus without dysplasia; D69.6 Thrombocytopenia, unspecified; K44.9 Diaphragmatic hernia without obstruction or gangrene
CPT/HCPCS: 99214

== ENCOUNTER → 2024-03-22 14:09 | Outpatient (BNVA) | payer MEDICARE, MEDICAID, SELFPAY | PROVIDERS: PCP Registered Nurse; Visit Provider Internal Medicine Gastroenterology | DX: K44.9 Diaphragmatic hernia without obstruction or gangrene (principal); K21.00 Gastro-esophageal reflux disease with esophagitis, without bleeding; K22.70 Barrett's esophagus without dysplasia; D69.6 Thrombocytopenia, unspecified | CPT/HCPCS: 99212 ==

== ENCOUNTER 2024-05-16 09:26 | Outpatient (REF) | payer MEDICARE, MEDICAID, SELFPAY ==
--- NOTE | ~2024-05-16 | FL_ITS ---
EXAMINATION: XR FLUOROSCOPY UPPER GI WITH AIR CLINICAL INFORMATION: Paraesophageal hernia. Severe intellectual disability. History of paraesophageal hernia repair. COMPARISON: CT chest November 2023 TECHNIQUE: Fluoroscopic upper GI examination was performed utilizing standard techniques with thin barium. Numerous spot images were obtained. FINDINGS: Limited single contrast images of the esophagus demonstrate a very dilated esophagus. No evidence of stricture, or mass. Esophageal peristalsis was normal. A large type II paraesophageal hernia is present, with the majority of the antrum and body located in the thoracic cavity. This consistent with organoaxial volvulus. The GE junction appears subdiaphragmatic. Severe gastroesophageal reflux is seen up to the thoracic inlet. Limited single contrast images of the stomach demonstrated a normal contour. Evaluation of the gastric mucosa is limited due to patient inability to tolerate effervescent granules and cooperate during the examination. A faint amount of contrast is does progress into the duodenal sweep. FLUOROSCOPY TIME: 2 minutes 53 seconds Number of Spot Images: 9 Number of Cine: 8 DOSE AREA PRODUCT: [id number] uGy-m2 (microgray-meter squared) FL/FL barium swallow IMPRESSION: 1. Limited exam due to patient's inability to cooperate due to his intellectual disability. 2. Large type II paraesophageal hernia with severe gastroesophageal reflux. Due to the limitations, it is difficult to determine the location of the pyloric valve, and a type IV hernia is not excluded. CT images depict a type II paraesophageal hernia. 3. Very dilated esophagus. 4. Small amount of contrast does progress into the duodenal bulb and sweep. This procedure was performed by Lucius Cody PA-C, and supervised by Dr. Vides Electronically signed by: Heath Vides MD 05/16/2024 12:40 PM EDT
== END 2024-05-16 09:27 | disposition home or self-care (01) ==
LOC: HO.XRAY 09:26
PROVIDERS: PCP Registered Nurse; Visit Provider Internal Medicine Gastroenterology
DX: K44.9 Diaphragmatic hernia without obstruction or gangrene (principal)
CPT/HCPCS: 74220

== ENCOUNTER → 2024-05-16 09:28 | Outpatient (BNV) | payer MEDICARE, MEDICAID, SELFPAY | PROVIDERS: PCP Registered Nurse; Visit Provider Radiology Diagnostic Radiology | DX: K44.9 Diaphragmatic hernia without obstruction or gangrene (principal) | CPT/HCPCS: 74220 ==

== ENCOUNTER → 2024-05-24 12:01 | Outpatient (BNVA) | payer MEDICARE, MEDICAID, SELFPAY | PROVIDERS: PCP Registered Nurse; Visit Provider Internal Medicine Gastroenterology ==

== ENCOUNTER 2024-05-25 09:32 | Outpatient (REF) | payer MEDICARE, MEDICAID, SELFPAY ==
--- NOTE | ~2024-05-25 | XR_ITS ---
EXAMINATION: XR ABDOMEN KUB CLINICAL INDICATION: R10.32 - Left lower quadrant pain COMPARISON: 09/28/2013. TECHNIQUE: AP view of the abdomen. FINDINGS: The bowel gas pattern is normal with no evidence of ileus or obstruction. Mild stool retention throughout the colon with sparing of the rectum and sigmoid. No abnormal soft tissue calcifications are noted. No organomegaly or large abdominal mass. Bony structures demonstrate mild spinal and mild bilateral hip joint degenerative changes. XR/XR KUB IMPRESSION: 1. No acute findings of the abdomen. Electronically signed by: Heath Vides MD 08/03/2024 02:05 PM TINA
--- NOTE | ~2024-05-25 | US_ITS ---
EXAMINATION: US ABDOMEN COMPLETE CLINICAL INFORMATION: Left lower quadrant pain, thrombocytopenia, rule out fatty liver. COMPARISON: Ultrasound abdomen 09/26/2019 TECHNIQUE: Real-time imaging of the abdominal viscera. Technologist notes: Exam limited by overlying bowel gas. FINDINGS: PANCREAS: The pancreas is obscured by overlying bowel gas. ABDOMINAL AORTA: The visualized proximal segment is normal in caliber. The mid and distal segments are obscured by overlying bowel gas. INFERIOR VENA CAVA: Visualized portions are normal. LIVER: The liver is normal in size. The liver contour is normal. Parenchymal echogenicity is normal. No focal hepatic lesion. There is no intrahepatic biliary duct dilatation seen. GALLBLADDER: The gallbladder is physiologically distended without evidence of stones, sludge, polyps, wall thickening or pericholecystic fluid. COMMON BILE DUCT: Normal in caliber measuring 0.2 cm in diameter. RIGHT KIDNEY: No hydronephrosis. No renal calculi or focal parenchymal lesions. The kidney measures 8.9 cm in maximum dimension. LEFT KIDNEY: No hydronephrosis. No renal calculi. The kidney measures 10.5 cm in maximum dimension. There is a simple cyst in the mid pole of the left kidney measuring up to 2.4 cm, for which no dedicated follow-up imaging is required. SPLEEN: Normal in size. The spleen measures 10.7 cm in maximum dimension. FREE FLUID: None. US/US abdomen complete IMPRESSION: Exam limited by overlying bowel gas. Normal liver echogenicity within the limits of examination. Electronically signed by: Derrick Osullivan MD 05/25/2024 03:13 PM EDT
== END 2024-05-25 09:33 | disposition home or self-care (01) ==
LOC: HO.US 09:32
PROVIDERS: PCP Registered Nurse; Visit Provider Internal Medicine Gastroenterology
DX: R10.32 Left lower quadrant pain (principal)
CPT/HCPCS: 74018; 76700

== ENCOUNTER → 2024-05-25 09:36 | Outpatient (BNV) | payer MEDICARE, MEDICAID, SELFPAY | PROVIDERS: PCP Registered Nurse; Visit Provider Radiology Diagnostic Radiology | DX: R10.32 Left lower quadrant pain (principal) | CPT/HCPCS: 74018 ==